=== PATIENT | male | born 1945 | race African-American/Black ===

== ENCOUNTER 2016-10-13 06:19 | Day surgery (SDC) | payer OTHER ==
[~2016-10-13] VITALS: Ht 185.4 cm; Wt 114.7 kg
[~2016-10-13 06:19] MED LIST: GLIMEPIRIDE2 MG PO; LISINOPRIL/HCTZ1 TA1 PO; LISINOPRIL20 MG PO; METFORMIN500 MG PO; NORVASC5 MG PO
[2016-10-13] MEDS ORDERED: PRINIVIL40 MG PO (06:41)
[2016-10-13] MEDS ORDERED: NORVASC 10MG10 MG PO (06:42)
[2016-10-13] MEDS ORDERED: GLUCOPHAGE1000 MG PO (06:43)
[2016-10-13 07:20] VITALS: BP 151/63; PULSE 58; TEMP 98.1
[2016-10-13 10:05] VITALS: BP 123/53; PULSE 46; TEMP 98
[2016-10-13] MEDS ORDERED: NORCO 325 MG-7.1 TAB PO (10:11)
[2016-10-13 10:17] VITALS: BP 125/62; PULSE 53
[2016-10-13 10:30] VITALS: BP 122/47; PULSE 47
[2016-10-13 10:45] VITALS: BP 113/52; PULSE 47
[2016-10-13 11:15] VITALS: BP 128/55; PULSE 49
== END 2016-10-13 12:35 | disposition home or self-care (01) ==
LOC: SDCO 06:19
DX: K40.91 Unilateral inguinal hernia, without obstruction or gangrene, recurrent (principal); E11.9 Type 2 diabetes mellitus without complications
CPT/HCPCS: C1781; J0690; J2704; J3010; J7030

== ENCOUNTER → 2019-03-03 | Outpatient (CLI) | payer MEDICARE ==
[~2019-03-03] MED LIST changes: +GLUCOPHAGE1000 MG PO; +NORCO 325 MG-7.1 TAB PO; +NORVASC 10MG10 MG PO; +PRINIVIL40 MG PO
== END ==
LOC: COL.VAS 10:09
DX: I87.2 Venous insufficiency (chronic) (peripheral) (principal)

== ENCOUNTER 2019-12-21 00:11 | Inpatient (IN) | payer MEDICARE ==
[~2019-12-21] VITALS: Ht 182.9 cm; Wt 97.9 kg
[2019-12-21] VITALS (444 sets, daily range): BP systolic 125–156; BP diastolic 6–75; PULSE 59–68; TEMP 97.9–99; O2SAT 88–100
[2019-12-21 00:39] LABS: BASO % 0.3 % (0.0-2.0); EOS # 0.2 (0.0-0.7); GRAN # 4.4 (1.4-6.5); GRAN % 59.9 % (42.2-75.2); LYMPH # 1.7 (1.2-3.4); LYMPH % 22.6 % (20.0-51.0); MEAN CELL VOLUME 70 fl (80.0-100.0); MEAN CORPUSCULAR HGB CONC 30 g/dl (33.0-37.0); MEAN PLATELET VOLUME 8.3 fl (7.4-10.4); MONO % 13.8 % (1.7-9.3); PLATELET COUNT 244 K/mm3 (130-400); REDCELL DISTRIBUTION WIDTH-CV 18.1 % (11.5-14.5)
[2019-12-21 00:46] LABS: HEMATOCRIT 21.8 % (42.0-52.0); HEMOGLOBIN 6.5 g/dl (13.5-18.0); MEAN CORPUSCULAR HEMOGLOBIN 21 pg (27.0-31.0)
[2019-12-21 00:48] LABS: ALBUMIN 3.6 gm/dL (3.5-5.0); BILIRUBIN,TOTAL 0.3 mg/dL (0.0-1.0); CALCIUM 8.8 mg/dL (8.4-10.2); CREATININE, serum 1.43 (0.66-1.25); TOTAL PROTEIN 8.8 gm/dL (6.4-8.2)
[2019-12-21] MEDS ORDERED: AMARYL1 MG PO (01:55)
[2019-12-21] MEDS ORDERED: HYGROTON 2525 MG/TAB (01:56)
[2019-12-21 02:39] LABS: PH 5 (5-8); SQUAMOUS EPITHELIAL None Seen /hpf; URINE APPEARANCE Clear; URINE BACTERIA None Seen /hpf; URINE BILIRUBIN Negative (NEGATIVE); URINE BLOOD Negative (NEGATIVE); URINE COLOR Yellow; URINE GLUCOSE Negative (NEGATIVE); URINE KETONE Negative (NEGATIVE); URINE LEUKOCYTE ESTERASE Trace (NEGATIVE); URINE NITRATE Negative (NEGATIVE); URINE PROTEIN(semi-quant) Negative (NEGATIVE); URINE RBC 0-2 /hpf; URINE UROBILINOGEN Negative (NEGATIVE)
[2019-12-21 02:43] LABS: COLLECTION METHOD CLEAN CATCH
[2019-12-21] MEDS ORDERED: LIPITOR 40MG TA40 MG PO (05:01)
[2019-12-21 05:19] LABS: BASO % 0.5 % (0.0-2.0); EOS # 0.3 (0.0-0.7); EOS % 4.3 % (0-4.0); GRAN # 3.9 (1.4-6.5); GRAN % 62.4 % (42.2-75.2); LYMPH # 1.3 (1.2-3.4); MEAN CELL VOLUME 72 fl (80.0-100.0); MEAN CORPUSCULAR HGB CONC 29 g/dl (33.0-37.0); MEAN PLATELET VOLUME 8.3 fl (7.4-10.4); MONO # 0.7 (0.1-0.6); MONO % 11.5 % (1.7-9.3); PLATELET COUNT 233 K/mm3 (130-400); RED BLOOD COUNT 2.84 M/mm3 (4.20-5.60); REDCELL DISTRIBUTION WIDTH-CV 18.1 % (11.5-14.5)
[2019-12-21] MEDS ORDERED: MULTI VITAMINS1 TAB PO (05:20)
[2019-12-21 05:25] LABS: HEMATOCRIT 20.3 % (42.0-52.0); HEMOGLOBIN 5.9 g/dl (13.5-18.0); MEAN CORPUSCULAR HEMOGLOBIN 21 pg (27.0-31.0)
[2019-12-21 05:30] LABS: CALCIUM 8.4 mg/dL (8.4-10.2); CREATININE, serum 1.37 (0.66-1.25); POTASSIUM 4.3 mmol/L (3.4-5.0)
[2019-12-21 05:41] LABS: TROPONIN-I 0.015 ng/mL (0.000-0.035)
[2019-12-21 05:44] LABS: IRON,SERUM 23 ug/dL (35-150)
[2019-12-21 05:53] LABS: TOTAL IRON BINDING CAPACITY 235 ug/dL (261-462)
--- NOTE | 2019-12-21 06:51 | NUR ---
0402 - RECEIVED REPORT FROM IZZY CARDONA. 0427 - PT ARRIVED IN UNIT, ABLE TO TRASNFER SELF FROM STRETCHER TO BED WITH STANDBY ASSIST. PT DENIES ANY PAIN OR SOB, VS WNL. PT'S BS AT 58 PRIOR TO ARRIVAL, GIVEN D50 IN ED. PT'S BS AT 97 UPON RECHECK. 0515 - BT BEGUN, AND NO ADVERSE REACTION NOTED POST 15 MINTUTE OF TRANSFUSION. HGB AT 5.9 AT LATEST, WILL FOLLOW H&H 1 HOUR POST TRANSFUSION.
--- NOTE | 2019-12-21 06:55 | NUR ---
0600 - PT'S BS AT 57, OJ AND CRACKER GIVEN. 0630 - PT'S BS UPON RECEHCK IS 61, D10W IN NS JUST STARTED AND WILL RECHECK BS AT 0700.
--- NOTE | 2019-12-21 07:42 | NUR ---
REPORT GIVEN TO IZZY MONSALVE.
[2019-12-21 11:30] LABS: HEMATOCRIT 22.6 % (42.0-52.0); HEMOGLOBIN 6.8 g/dl (13.5-18.0)
--- NOTE | 2019-12-21 16:23 | NUR ---
Bookkeeping Teacher met with patient to discuss discharge planning. Patient lives in [place] with his , Ivy (ph#[phone]). Patient sees Dr. Callejas for primary care and obtains medications from [facility] with no difficulties. Patient states he has Medicare and Aetna supplemental. Patient states his has his wallet and will bring in the Aetna card. Patient does not use any DME and reports independence with ADLS. Patient does not have Advance Directives but is interested in setting up DPOA-HC. SW assisted patient in filling out the form and chose to designate his and daughter, Sachi. SW and RN provided witness signature. SW provided original and copies to patient then placed a copy on patient's chart. SW will continue to follow.
[2019-12-21 16:53] LABS: HEMATOCRIT 25.3 % (42.0-52.0); HEMOGLOBIN 7.7 g/dl (13.5-18.0)
[2019-12-22 00:15] VITALS: BP 136/57; PULSE 60; TEMP 98.5
[2019-12-22 03:23] LABS: C-PEPTIDE,SERUM 18.73 ng/mL (0.80-3.90)
[2019-12-22 04:59] VITALS: BP 142/59; PULSE 60; TEMP 98
[2019-12-22 07:39] LABS: BASO # 0.1 (0.0-0.2); BASO % 0.9 % (0.0-2.0); EOS # 0.5 (0.0-0.7); EOS % 9.2 % (0-4.0); GRAN # 3.1 (1.4-6.5); GRAN % 53.7 % (42.2-75.2); LYMPH # 1.5 (1.2-3.4); LYMPH % 25.6 % (20.0-51.0); MEAN CELL VOLUME 73 fl (80.0-100.0); MEAN CORPUSCULAR HGB CONC 30 g/dl (33.0-37.0); MEAN PLATELET VOLUME 9.2 fl (7.4-10.4); MONO # 0.6 (0.1-0.6); MONO % 10.4 % (1.7-9.3); PLATELET COUNT 282 K/mm3 (130-400); RED BLOOD COUNT 3.35 M/mm3 (4.20-5.60); REDCELL DISTRIBUTION WIDTH-CV 19.4 % (11.5-14.5)
[2019-12-22 07:49] LABS: HEMATOCRIT 24.6 % (42.0-52.0); HEMOGLOBIN 7.4 g/dl (13.5-18.0); MEAN CORPUSCULAR HEMOGLOBIN 22 pg (27.0-31.0)
[2019-12-22 07:51] VITALS: BP 170/68; PULSE 73; TEMP 97.4
[2019-12-22 07:52] LABS: CALCIUM 8.7 mg/dL (8.4-10.2); CREATININE, serum 1.32 (0.66-1.25); POTASSIUM 4.9 mmol/L (3.4-5.0)
--- NOTE | 2019-12-22 08:12 | NUR ---
Assessment completed, alert/oriented, vital signs stable, denies any pain or discomfort, hemaglobin 7.4 this morning, heart RRR/ SR on tele, lungs CTA, no resp.difficulty, blood sugars are being maintained >100 and patient reports feeling fine/ denies any s/s of hypoglycemia or anemia, he is sitting up eating breakfast at this time, he has voiced desire to be discharged home today
[2019-12-22 12:01] VITALS: BP 149/64; PULSE 62; TEMP 98.4
[2019-12-22] MEDS ORDERED: FERROUS SU325 MG/TAB PO (15:39)
--- NOTE | 2019-12-22 17:15 | NUR ---
Discharge instructions reviewed with the patient and his , instructed to follow up with PCP and Pulm. in 1 week time, have labs recheck as directed, instructed to stop Amaryl and to start BID iron supplement, check fsbs at least BID, IV and tele removed, ambulatory and leaving with his , I will escort him out
== END 2019-12-22 17:25 | disposition home or self-care (01) | DRG 812 ==
LOC: COL.ER 00:11 → MEDICAL 02:58 → ICU 02:58 → MEDICAL 18:03
PROVIDERS: Emergency Medicine; Nurse Practitioner Family; ADMIT Hospitalist
DX: D50.9 Iron deficiency anemia, unspecified (principal); N17.9 Acute kidney failure, unspecified; E11.649 Type 2 diabetes mellitus with hypoglycemia without coma; I12.9 Hypertensive chronic kidney disease with stage 1 through stage 4 chronic kidney disease, or unspecified chronic kidney disease; N18.9 Chronic kidney disease, unspecified; Z79.84 Long term (current) use of oral hypoglycemic drugs
CPT/HCPCS: 99223-AI; 99239; C9113; J1644; J7042; J7131; P9016

== ENCOUNTER 2020-02-16 16:36 | Outpatient (RCR) | payer MEDICARE ==
[~2020-02-16] VITALS: Ht 182.9 cm; Wt 96.0 kg
[2020-02-16] VITALS (9 sets, daily range): BP systolic 130–153; BP diastolic 47–68; PULSE 59–63; TEMP 98.3–99
[~2020-02-16 16:36] MED LIST changes: +AMARYL1 MG PO; +FERROUS SU325 MG/TAB PO; -GLUCOPHAGE1000 MG PO; +GLUCOPHAGE500 MG/TAB PO; +HYGROTON 2525 MG/TAB; +LIPITOR 40MG TA40 MG PO; +MULTIPLE VITAMI1 TA5 PO
[2020-02-16] MEDS ORDERED: ZYLOPRIM 100MG100 MG PO (17:48)
[2020-02-16] MEDS ORDERED: ASPIRIN E.C. 8181 MG PO (17:49)
[2020-02-16] MEDS ORDERED: VITAMIN C500 MG PO (17:49)
== END 2020-02-19 08:34 | disposition home or self-care (01) ==
LOC: EUO 16:36
DX: D64.9 Anemia, unspecified (principal)
CPT/HCPCS: J7050; P9016

== ENCOUNTER 2020-03-26 10:23 | Outpatient (RCR) | payer MEDICARE ==
[2020-03-26] VITALS (7 sets, daily range): BP systolic 119–133; BP diastolic 49–64; PULSE 57–60; TEMP 98–98.3
[~2020-03-26] VITALS: Ht 182.9 cm; Wt 67.4 kg
[~2020-03-26 10:23] MED LIST changes: +ASPIRIN E.C. 8181 MG PO; +VITAMIN C500 MG PO; +ZYLOPRIM 100MG100 MG PO
[2020-03-26] MEDS ORDERED: FERROUS SU325 MG/TAB PO (15:42)
== END 2020-03-26 14:00 | disposition home or self-care (01) ==
LOC: EUO 10:23
DX: D50.9 Iron deficiency anemia, unspecified (principal)
CPT/HCPCS: J7050; P9016

== ENCOUNTER 2020-04-05 10:02 | Outpatient (CLI) | payer MEDICARE ==
[~2020-04-05] VITALS: Ht 182.9 cm; Wt 93.0 kg
[2020-04-05] VITALS (18 sets, daily range): BP systolic 128–157; BP diastolic 61–89; PULSE 59–79
--- NOTE | 2020-04-05 14:53 | NUR ---
Discharge instructions given to pt.pt verbalizes understanding.INt removed,catheter tip intact.Pt escorted out via wheelchair by this nurse.
--- NOTE | 2020-04-08 11:38 | NUR ---
pt to ct per ambulation, monitors applied, O2 on at 2l/nc.
== END 2020-04-05 16:25 | disposition home or self-care (01) ==
LOC: COL.RAD 10:02
DX: N28.89 Other specified disorders of kidney and ureter (principal); R91.8 Other nonspecific abnormal finding of lung field

== ENCOUNTER 2020-06-28 09:00 | Outpatient (RCR) | payer MEDICARE | END 2020-07-15 | disposition home or self-care (01) | LOC: WSPT | DX: M79.89 Other specified soft tissue disorders (principal); R60.0 Localized edema ==

== ENCOUNTER 2020-07-04 09:00 | Outpatient (RCR) | payer MEDICARE | END 2020-07-15 | disposition home or self-care (01) | LOC: WSPT | DX: C64.1 Malignant neoplasm of right kidney, except renal pelvis (principal); D50.9 Iron deficiency anemia, unspecified ==

== ENCOUNTER 2020-07-24 14:00 | Outpatient (RCR) | payer MEDICARE | END 2020-07-29 15:37 | disposition home or self-care (01) | LOC: WSPT 14:00 | DX: M79.89 Other specified soft tissue disorders (principal) ==

== ENCOUNTER 2020-10-03 12:13 | Inpatient (IN) | payer MEDICARE ==
[~2020-10-03] VITALS: Ht 185.4 cm; Wt 82.1 kg
[2020-10-03 13:11] LABS: EOS # 0.5 (0.0-0.7); EOS % 17.7 % (0-4.0); GRAN # 0.6 (1.4-6.5); GRAN % 21.3 % (42.2-75.2); HEMOGLOBIN 10.8 g/dl (13.5-18.0); LYMPH # 1.5 (1.2-3.4); LYMPH % 50.3 % (20.0-51.0); MEAN CELL VOLUME 88 fl (80.0-100.0); MEAN CORPUSCULAR HEMOGLOBIN 27 pg (27.0-31.0); MEAN CORPUSCULAR HGB CONC 30 g/dl (33.0-37.0); MEAN PLATELET VOLUME 9.3 fl (7.4-10.4); MONO # 0.3 (0.1-0.6); MONO % 9.4 % (1.7-9.3); PLATELET COUNT 134 K/mm3 (130-400); RED BLOOD COUNT 4.02 M/mm3 (4.20-5.60); REDCELL DISTRIBUTION WIDTH-CV 16.1 % (11.5-14.5)
[2020-10-03 13:12] LABS: INR 1.2 (0.8-3.0); PROTHROMBIN TIME 13.3 SECONDS (9.7-12.8)
[2020-10-03 13:13] LABS: BILIRUBIN,TOTAL 0.5 mg/dL (0.0-1.0); C-REACTIVE PROTEIN 5.8 mg/dL (0.0-0.9); CALCIUM 8.2 mg/dL (8.4-10.2); CREATININE, serum 1.1 (0.66-1.25); MAGNESIUM 1.9 mg/dL (1.6-2.3); POTASSIUM 4.1 mmol/L (3.4-5.0); TOTAL PROTEIN 8.8 gm/dL (6.4-8.2)
[2020-10-03 13:15] LABS: HEMATOCRIT 35.5 % (42.0-52.0)
[2020-10-03 13:26] LABS: TROPONIN-I 0.058 ng/mL (0.000-0.035)
[2020-10-03 15:47] LABS: COLLECTION METHOD CLEAN CATCH
[2020-10-03 15:55] LABS: AMORPHOUS CRYSTAL Present /uL; PH 7 (5-8); SQUAMOUS EPITHELIAL 0-2 /hpf; URINE APPEARANCE Clear; URINE BACTERIA None Seen /hpf; URINE BILIRUBIN Negative (NEGATIVE); URINE BLOOD 2+ (NEGATIVE); URINE COLOR Straw; URINE GLUCOSE Negative (NEGATIVE); URINE KETONE Negative (NEGATIVE); URINE LEUKOCYTE ESTERASE Negative (NEGATIVE); URINE NITRATE Negative (NEGATIVE); URINE PROTEIN(semi-quant) Negative (NEGATIVE); URINE RBC 20-50 /hpf; URINE UROBILINOGEN Negative (NEGATIVE)
[2020-10-03] MEDS ORDERED: PROAIR HFA0.09 MG/AC IH (16:58)
[2020-10-03] MEDS ORDERED: TEMOVATE OINT30 GM TOP (16:59)
[2020-10-03] MEDS ORDERED: YERVOY (16:59)
[2020-10-03] MEDS ORDERED: CABOMETYX40 MG PO (17:14)
[2020-10-03] MEDS ORDERED: LASIX 40MG TABL40 MG PO (17:20)
[2020-10-03 21:54] VITALS: BP 166/76; PULSE 57; TEMP 97.4
[2020-10-04] VITALS (8 sets, daily range): BP systolic 119–183; BP diastolic 59–86; PULSE 56–86; TEMP 97.3–98.3
[2020-10-04 06:25] LABS: HEMOGLOBIN 11.4 g/dl (13.5-18.0); MEAN CELL VOLUME 86 fl (80.0-100.0); MEAN CORPUSCULAR HEMOGLOBIN 27 pg (27.0-31.0); MEAN CORPUSCULAR HGB CONC 31 g/dl (33.0-37.0); MEAN PLATELET VOLUME 10.2 fl (7.4-10.4); PLATELET COUNT 102 K/mm3 (130-400); RED BLOOD COUNT 4.27 M/mm3 (4.20-5.60); REDCELL DISTRIBUTION WIDTH-CV 16.2 % (11.5-14.5)
[2020-10-04 06:38] LABS: HEMATOCRIT 36.7 % (42.0-52.0)
[2020-10-04 06:46] LABS: ALBUMIN 2.8 gm/dL (3.5-5.0); BILIRUBIN,TOTAL 0.7 mg/dL (0.0-1.0); CALCIUM 8.1 mg/dL (8.4-10.2); CREATININE, serum 1.05 (0.66-1.25); POTASSIUM 4.1 mmol/L (3.4-5.0); TOTAL PROTEIN 8.5 gm/dL (6.4-8.2)
[2020-10-04 06:51] LABS: TROPONIN-I 0.054 ng/mL (0.000-0.035)
--- NOTE | 2020-10-04 07:20 | NUR ---
Patient lying in bed watching TV at this time. Patient denies any pain or discomfort. Patient denies any needs at this time. Will continue to monitor. Call light within reach. Fall percautions in place.
--- NOTE | 2020-10-04 07:25 | NUR ---
Bedside report recieved from IZZY Arroyo. Patient laying in bed resting at this time. NS running as ordered. Patient denies any pain, discomfort, or needs at this time. Will continue to monitor. Fall percautions in place. Call light within reach.
[2020-10-04 08:03] LABS: EOSINOPHIL 21 % (0-4); LYMPHOCYTE 46 % (20.0-51.0); NEUTROPHILS 32 % (42.0-75.2); OVALOCYTES 2+; PLATELET ESTIMATE DECREASED (NORMAL)
--- NOTE | 2020-10-04 13:54 | NUR ---
Primary nurse was assisted with [id number] patient care by [employer] [employer] student Maciel Camacho and [employer] instructor Elvira Quijano MSN, RN.
--- NOTE | 2020-10-04 14:50 | NUR ---
Patient Service Representative met with patient and patient's , Jessica (ph#[phone]) to discuss discharge planning. Patient lives in [place] with his and sees Dr. Aurora Callejas for primary care. Patient obtains medications from [facility]. Patient has recently borrowed a walker from a bapt[employer] friend as he has had more difficulty getting around. Per patient's , patient has needed assistance from her with all ADLS. SW reviewed PT recommendation for SNF. Patient's Jessica is in agreement, however at first patient shook his head "no". After further discussion, patient seems more agreeable. SW reviewed locals SNF's and preferences are 1) [facility] and 2) [facility]. Patient has Advance Directives in EMR which designate Jessica and patient's daughter, Sachi. SW contacted both [facility] and [facility] then faxed referrals. MIRTHA followed left a message for Dr. Brice's RN, Rosa Maria as patient is currently on oral chemotherapy. SW received a phone message back from Rosa Maria that advised Dr. Brice is supportive of patient going to rehab. Plan will be SNF. Waiting on screens from [facility] and [facility].
--- NOTE | 2020-10-04 15:18 | NUR ---
Patient taken down to MRI via wheelchair.
--- NOTE | 2020-10-04 16:25 | NUR ---
[facility] advised her team reviewed referral and they will continue to follow referral. [facility] advised that they will not have beds over the weekend.
--- NOTE | 2020-10-04 19:29 | NUR ---
Bedside report given to IZZY Larios. Patient resting in bed at this time. Patient denies any pain or discomfort. Denies any further request. Fall percautions in place. Call light within reach.
[2020-10-05 03:30] VITALS: BP 165/76; PULSE 65; TEMP 97.4
[2020-10-05 05:48] LABS: BASO % 0.7 % (0.0-2.0); EOS # 0.8 (0.0-0.7); EOS % 24.4 % (0-4.0); GRAN # 0.6 (1.4-6.5); GRAN % 20.2 % (42.2-75.2); HEMOGLOBIN 10.9 g/dl (13.5-18.0); LYMPH # 1.5 (1.2-3.4); LYMPH % 48.5 % (20.0-51.0); MEAN CELL VOLUME 87 fl (80.0-100.0); MEAN CORPUSCULAR HEMOGLOBIN 26 pg (27.0-31.0); MEAN CORPUSCULAR HGB CONC 30 g/dl (33.0-37.0); MEAN PLATELET VOLUME 9.7 fl (7.4-10.4); MONO # 0.2 (0.1-0.6); MONO % 5.9 % (1.7-9.3); PLATELET COUNT 128 K/mm3 (130-400); RED BLOOD COUNT 4.13 M/mm3 (4.20-5.60); REDCELL DISTRIBUTION WIDTH-CV 15.9 % (11.5-14.5)
[2020-10-05 05:49] LABS: HEMATOCRIT 35.9 % (42.0-52.0)
[2020-10-05 06:00] LABS: CALCIUM 7.9 mg/dL (8.4-10.2); CREATININE, serum 0.96 (0.66-1.25); POTASSIUM 3.8 mmol/L (3.4-5.0)
--- NOTE | 2020-10-05 07:18 | NUR ---
Patient resting in bed at this time. Patient denies any pain, discomfort, or needs. Will continue to moniotor. Call light within reach. Fall percautions in place.
[2020-10-05 08:19] VITALS: BP 156/69; PULSE 60; TEMP 97.3
[2020-10-05] MEDS ORDERED: TOPROL XL 25MG25 MG PO (09:18)
--- NOTE | 2020-10-05 10:38 | NUR ---
Patient resting in bed at this time. PT worked with patient and were able to transfer him to his chair. Dr. Currie has put in orders for discharge. Waiting for placement. Covid test collected. Bladder scan performed, 302 ml residual urine detected. JOSEPH Palacio notified. Patient denies any pain, discomfort, or needs at this time. Gave an update to patient's son Leonard. Call light within reach. Fall percautions in place.
[2020-10-05 11:08] VITALS: BP 159/79; PULSE 58; TEMP 97.4
[2020-10-05 16:18] VITALS: BP 160/75; PULSE 62; TEMP 97.6
--- NOTE | 2020-10-05 17:00 | NUR ---
Patient is resting in bed at this time. Scheduled meds given. Patient's legs were moisturized and then wrapped in gauze bandages to help with the skin dryness the patient has been experiencing. Patient toileted. Patient does not C/O any pain or discomfort at this time. Patient denies any needs. Will continue to monitor. Call light within reach. Fall percautions in place.
[2020-10-05 19:52] VITALS: BP 164/75; PULSE 64; TEMP 97.8
[2020-10-05 23:20] VITALS: BP 159/96; PULSE 69; TEMP 97.4
[2020-10-06 04:14] VITALS: BP 165/84; PULSE 62; TEMP 97.6
--- NOTE | 2020-10-06 05:05 | NUR ---
PATIENT RESTED QUIETLY IN BED THROUGHOUT THE NIGHT WAKING UP A FEW TIMES TO GO TO THE BATHROOM. PATIENT ALERT AND ORIENTED WITH INTERMITTENT CONFUSION BUT EASILY REORIENTED. NO NEW ISSUES NOTED OR REPORTED BY PATIENT. FALL PRECAUTIONS IN PLACE.
[2020-10-06 06:22] LABS: HEMATOCRIT 37.6 % (42.0-52.0); HEMOGLOBIN 11.7 g/dl (13.5-18.0); MEAN CELL VOLUME 87 fl (80.0-100.0); MEAN CORPUSCULAR HEMOGLOBIN 27 pg (27.0-31.0); MEAN CORPUSCULAR HGB CONC 31 g/dl (33.0-37.0); MEAN PLATELET VOLUME 9.5 fl (7.4-10.4); PLATELET COUNT 125 K/mm3 (130-400); REDCELL DISTRIBUTION WIDTH-CV 16.3 % (11.5-14.5)
[2020-10-06 06:25] LABS: CALCIUM 8.1 mg/dL (8.4-10.2); CREATININE, serum 0.98 (0.66-1.25)
--- NOTE | 2020-10-06 06:50 | NUR ---
appears to be sleeping, bedside shift report received from IZZY Larios
[2020-10-06 07:56] VITALS: BP 169/84; PULSE 62; TEMP 97.5
[2020-10-06] MEDS ORDERED: FLOMAX 0.40.4 MG/CAP PO (08:18)
[2020-10-06] MEDS ORDERED: TOPROL XL 50MG50 MG PO (08:47)
--- NOTE | 2020-10-06 10:40 | NUR ---
is up in recliner, gauze removed from lower extremities, legs are very dry and scaley and has a 1cm open area to top of right ankle area dn aunder ankle on the right, a small 0.5 cm open area to top of right ankle area, thick layer of lotion applied and left and bilateral lower extremities wrapped with anil wraps, denies pain or needs
--- NOTE | 2020-10-06 11:15 | NUR ---
full assessment was completed, have reviewed assessment completed by student and in agreement with that assessment, pedal pulses are difficult to assess with the tough and flaking skin to area, toes and feet are warm to touch,
[2020-10-06 11:20] VITALS: BP 169/84; PULSE 62; TEMP 97.5
[2020-10-06 12:02] VITALS: BP 157/73; PULSE 55
--- NOTE | 2020-10-06 13:02 | NUR ---
MIRTHA update. Patient to Dc to [facility] at 3 pm. MIRTHA faxed DC orders to [facility] and worked with him on transfer time. Notified nurse about care.
--- NOTE | 2020-10-06 13:19 | NUR ---
had very large loose incontinent stool, he states it just came on very quickly and was unable to call for help, care provided
--- NOTE | 2020-10-06 14:05 | NUR ---
PT WAS COMPLIANT TO MEDICATIONS. PT ATE TWO MEALS AND TOLERATED BOTH WELL. PT WAS TRANSFERRED FROM BED TO CHAIR AND ALSO USED THE COMODE ONCE. PT WAS VERY PLEASANT ALL DAY, BUT DID HAVE SOME MINOR CONFUSION AT TIMES, BUT WAS ABLE TO GATHER HIS THOUGHTS AFTER A FEW MINUTES. PT HAD 2 BOWEL MOVEMENTS AND ONE WAS AN UNCONTROLLED BOWEL MOVEMENT IN THE CHAIR.
--- NOTE | 2020-10-06 14:31 | NUR ---
[facility] charting reviewed by this instructor, agree with assessment findings and charting.
--- NOTE | 2020-10-06 15:29 | NUR ---
discharged per WC, report called to Pat at [facility]
== END 2020-10-06 15:30 | DRG 291 ==
LOC: COL.ER 12:13 → MEDICAL 14:03
PROVIDERS: Emergency Medicine; Physician Assistant; ADMIT Family Medicine
DX: I13.0 Hypertensive heart and chronic kidney disease with heart failure and stage 1 through stage 4 chronic kidney disease, or unspecified chronic kidney disease (principal); I50.21 Acute systolic (congestive) heart failure; C64.9 Malignant neoplasm of unspecified kidney, except renal pelvis; C78.00 Secondary malignant neoplasm of unspecified lung; N18.9 Chronic kidney disease, unspecified; E78.5 Hyperlipidemia, unspecified; E11.22 Type 2 diabetes mellitus with diabetic chronic kidney disease; R77.8 Other specified abnormalities of plasma proteins; R32 Unspecified urinary incontinence; D70.1 Agranulocytosis secondary to cancer chemotherapy; E11.649 Type 2 diabetes mellitus with hypoglycemia without coma; M48.061 Spinal stenosis, lumbar region without neurogenic claudication; I25.10 Atherosclerotic heart disease of native coronary artery without angina pectoris; T45.1X5A Adverse effect of antineoplastic and immunosuppressive drugs, initial encounter; D69.6 Thrombocytopenia, unspecified; D63.1 Anemia in chronic kidney disease; D53.9 Nutritional anemia, unspecified; E03.9 Hypothyroidism, unspecified; I89.0 Lymphedema, not elsewhere classified; E11.622 Type 2 diabetes mellitus with other skin ulcer; L97.529 Non-pressure chronic ulcer of other part of left foot with unspecified severity; L97.519 Non-pressure chronic ulcer of other part of right foot with unspecified severity; Z79.82 Long term (current) use of aspirin; Z79.84 Long term (current) use of oral hypoglycemic drugs
CPT/HCPCS: 99223-AI; 99232-AI; 99233-AI; 99239; J1644; J1940

== ENCOUNTER → 2020-12-02 15:45 | Outpatient (RCR) | payer MEDICARE ==
[~2020-12-02 15:45] MED LIST changes: +CABOMETYX40 MG PO; +FLOMAX 0.40.4 MG/CAP PO; +LASIX 40MG TABL40 MG PO; +PROAIR HFA0.09 MG/AC IH; +TEMOVATE OINT30 GM TOP; +TOPROL XL 25MG25 MG PO; +TOPROL XL 50MG50 MG PO; +YERVOY
== END | disposition home or self-care (01) ==
LOC: WSPT 11-25 10:00
DX: I89.0 Lymphedema, not elsewhere classified (principal)

== ENCOUNTER 2021-07-20 11:23 | Inpatient (IN) | payer MEDICARE ==
[~2021-07-20] VITALS: Ht 175.3 cm; Wt 77.7 kg
[~2021-07-20 11:23] MED LIST changes: +LASIX 20MG TABL20 MG PO; -LASIX 40MG TABL40 MG PO; -VITAMIN C500 MG PO; +VTAMINC250TA PO
[2021-07-20 13:15] LABS: BASO # 0.1 K/mm3 (0.0-0.2); BASO % 0.7 % (0.0-2.0); EOS # 0.1 K/mm3 (0.0-0.7); EOS % 0.8 % (0.0-4.0); GRAN # 5.3 K/mm3 (1.4-6.5); GRAN % 71.5 % (42.2-75.2); HEMATOCRIT 29.8 % (42.0-52.0); LYMPH # 1.3 K/mm3 (1.2-3.4); LYMPH % 18.1 % (20.0-51.0); MEAN CELL VOLUME 93 fl (80.0-100.0); MEAN CORPUSCULAR HEMOGLOBIN 28 pg (27-31); MEAN CORPUSCULAR HGB CONC 30 g/dl (33.0-37.0); MEAN PLATELET VOLUME 9.1 fl (7.4-10.4); MONO # 0.6 K/mm3 (0.1-0.6); MONO % 8.5 % (1.7-9.3); PLATELET COUNT 442 K/mm3 (130-400); RED BLOOD COUNT 3.21 M/mm3 (4.20-5.60); REDCELL DISTRIBUTION WIDTH-CV 17.1 % (11.5-14.5)
[2021-07-20 13:34] LABS: ALBUMIN 1.9 gm/dL (3.4-4.8); BILIRUBIN,TOTAL 0.8 mg/dL (0.2-1.2); C-REACTIVE PROTEIN 10.77 mg/dL (0.00-0.50); CALCIUM 8.3 mg/dL (8.4-10.2); CREATININE, serum 1.26 mg/dL (0.72-1.25); POTASSIUM 3.6 mmol/L (3.5-4.5); TOTAL PROTEIN 7.9 gm/dL (6.2-8.1)
[2021-07-20 13:42] LABS: TROPONIN-I 0.15 ng/mL (0.00-0.033)
[2021-07-20 14:16] LABS: COLLECTION METHOD CLEAN CATCH
[2021-07-20 14:24] LABS: PH 5 (5-8); SQUAMOUS EPITHELIAL 0-2 /hpf (0-10); URINE APPEARANCE Hazy (CLEAR/HAZY); URINE BACTERIA None Seen /hpf (NONE SEEN); URINE BILIRUBIN Negative (NEGATIVE); URINE BLOOD Negative (NEGATIVE); URINE COLOR Yellow (YELLOW); URINE GLUCOSE Negative (NEGATIVE); URINE KETONE Trace (NEGATIVE); URINE LEUKOCYTE ESTERASE Negative (NEGATIVE); URINE NITRATE Negative (NEGATIVE); URINE PROTEIN(semi-quant) 1+ (NEGATIVE); URINE UROBILINOGEN Negative (NEGATIVE)
--- NOTE | 2021-07-20 17:00 | NUR ---
PT ARRIVED FROM ED BY STRETCHER. THE PATIENT WAS NOT VERY WITH IT. HE RESPONDED TO VOICE AND TOUCH. HE IS VERY LETHARGIC. THE PATIENT WAS TRANSFERRED OVER TO THE BED IN ROOM 313. HE HAS NOT MOVED MUCH. ASSESSMENT WAS COMPLETED. THE PATIENT HAS LIMITED AIR MOVEMENT IN HIS LOWER RIGHT LOBE. THE PATIENT COULD NOT ANSWER ANY QUESTIONS FOR ADMISSION, WILL ATTEMPT TO CALL FAMILY IN THE MORNING.
[2021-07-20 17:22] VITALS: BP 152/86; PULSE 57; TEMP 98.2
--- NOTE | 2021-07-20 19:15 | NUR ---
REPORT GIVEN TO IZZY CHARLES
[2021-07-20] MEDS ORDERED: ATARAX 25MG25 MG/TAB PO (19:18)
[2021-07-20] MEDS ORDERED: TOPROL XL 25MG25 MG PO (19:19)
[2021-07-20] MEDS ORDERED: PROMETHAZINE-CODEINE PO (19:24)
[2021-07-20] MEDS ORDERED: FOTIVDA PO (19:28)
--- NOTE | 2021-07-20 20:00 | NUR ---
Patient is sleeping in bed, responds to speach and name, but right away closes his eyes and just stay in bed resting. Able to follow simple comands as squeeze hands. He seems to understand what we say but unable to talk back. Pt has HTN, on RA, telemetry in place. NS running at 50ml/hr. Assessment completed, iv meds provided. No other needs at this time, continue monitoring. Talked to Mary, his next of kin, she stated PT was independent one week ago, able to walk, dress himself, shower, eating. She states that the only different thing he has done is taking his chemotherapy pill Fotivda, which started in 05/01/21. Pt did not eat dinner and unable to take PO meds. Continue monitoring.
[2021-07-20 20:07] VITALS: BP 145/85; PULSE 55; TEMP 97.6
[2021-07-20 23:12] VITALS: BP 142/74; PULSE 55; TEMP 97.4
[2021-07-21 03:42] VITALS: BP 140/79; PULSE 51; TEMP 97.4
--- NOTE | 2021-07-21 06:55 | NUR ---
Pt has been sleeping along the night. Scan of his bladder showed 734 ml. Catheter gaming order in place. Tried but unable to start due to coiling of the catheter. Receiving IV medication. Report given to day RN.
[2021-07-21 07:14] LABS: GRAN # 3.9 K/mm3 (1.4-6.5); HEMOGLOBIN 9.2 g/dl (13.5-18.0); LYMPH % 20.2 % (20.0-51.0); MEAN CELL VOLUME 92 fl (80.0-100.0); MEAN CORPUSCULAR HEMOGLOBIN 28 pg (27-31); MEAN CORPUSCULAR HGB CONC 31 g/dl (33.0-37.0); MEAN PLATELET VOLUME 9.6 fl (7.4-10.4); MONO # 0.1 K/mm3 (0.1-0.6); MONO % 2.6 % (1.7-9.3); PLATELET COUNT 398 K/mm3 (130-400); RED BLOOD COUNT 3.26 M/mm3 (4.20-5.60); REDCELL DISTRIBUTION WIDTH-CV 17.2 % (11.5-14.5)
[2021-07-21 07:28] LABS: ALBUMIN 1.8 gm/dL (3.4-4.8); CALCIUM 8.1 mg/dL (8.4-10.2); CREATININE, serum 1.2 mg/dL (0.72-1.25); MAGNESIUM 1.9 mg/dL (1.6-2.6); PHOSPHOROUS 5.3 mg/dL (2.3-4.7); POTASSIUM 3.8 mmol/L (3.5-4.5)
--- NOTE | 2021-07-21 08:05 | NUR ---
PT IS RETAINING URINE; HE NEEDS A SHEA, HOWEVER WHEN ATTEMPTED THIS AM WITH A REGULAR SHEA, THE SHEA WAS UNABLE TO BE PLACED. AWAITING A CAUDE CATHETER FROM PRESS WORKER HELPER.
[2021-07-21 08:35] VITALS: BP 145/77; PULSE 51
[2021-07-21 12:00] VITALS: BP 145/79; PULSE 54; TEMP 98
--- NOTE | 2021-07-21 12:00 | NUR ---
ATTEMPTED TO PLACE A COUDE SHEA CATHETER AFTER A FAILED ATTEMPED THIS MORNING BY THE EDITOR INDEX RN. WAS UNSUCCESSFUL. CONTACTED PROVIDER WHO ASKED WE PLACE A UROLOGY REFERRAL. CALLED DR. VELEZ AND LEFT A MESSAGE WITH HIM TO INFORM HIM OF THE CONSULT.
--- NOTE | 2021-07-21 12:02 | NUR ---
First visit from the appliance service technician. No needs right now.
--- NOTE | 2021-07-21 12:11 | NUR ---
Sexual Assault Counselor met with patient to discuss discharge planning. Patient lives in [place] with his , Jessica (ph#[phone]) and sees Dr. Aurora Callejas for primary care. Patient obtains medications from [facility] in [place] and states he occasionally uses a cane. Patient reported independence with ADLS despite PT/OT recommendation for SNF. Patient has DPOA-HC in EMR which designates patient's , Jessica and daughter Sachi. Patient states he plans to return home upon discharge but may be open to Home Health Services. SW collaborated with Hospitalist who advised patient may have palliative consult placed. Patient sees Dr. Brice, Oncologist but advised he cannot remember how often chemotherapy is.
--- NOTE | 2021-07-21 13:58 | NUR ---
THE PATIENT HAS LEFT THE FLOOR TO GO TO MRI. HAVE BEEN UNSUCCESSFUL IN MULTIPLE ATTEMPTS AT REACHING HIS , LORY TO GET CONSENT FOR THE THORACENTESIS THAT WAS ORDERED AT THIS TIME. CONTACTED THE PATIENT'S BROTHER WHO STATES THAT HE WOULD PREFER THAT LORY CONSENT. NO OTHER CONCERNS AT THIS TIME.
[2021-07-21 15:36] LABS: PLEURAL FLUID RBC 1000 /mm3 (0-0); PLEURAL FLUID WBC 831 /mm3
[2021-07-21 15:38] LABS: PLEURAL FLUID APPEARANCE CLEAR; PLEURAL FLUID COLOR COLORLESS
[2021-07-21 16:00] VITALS: BP 135/83; PULSE 68; TEMP 97.6
--- NOTE | 2021-07-21 16:06 | NUR ---
Met with patient's Jessica while patient was getting MRI and thoracentesis. She and I discussed the patient's current treatment plan with oncology and possible treatment paths moving forward. She doesn't feel comfortable taking the patient home and is interested in using a facility but would like to hear about prognosis and if chemo is working or not before deciding on how aggressive to be with current treatments. Jessica stated she plans to discuss things with pulmonology tomorrow morning but would also like to hear from onocology. I called Dr. Brice's office to notify him of the consult. I plan to talk with the again tomorrow morning after she has had a chance to hear from the care team.
[2021-07-21 18:59] LABS: TROPONIN-I 0.082 ng/mL (0.00-0.033)
--- NOTE | 2021-07-21 19:57 | NUR ---
THE PATIENT HAD AN UNEVENTFUL DAY. HE DID GO DOWN TO RADIOLOGY TO HAVE AN MRI OF THE BRAIN WELL A RIGHT SIDED THORACENTESIS. THE RADIOLOGIST DID GET 700ML OF RICARDA COLORED PLEURAL FLUID OFF. NO COMPLAINTS OF PAIN OR DIFFICULTY BREATHING POST PROCEDURE. PATIENT HAS BECOME INCREASINGLY CONFUSED THROUGHOUT THE LATE AFTERNOON. TODAY THE UROLOGIST JOSEPH CAME AND PLACED A SHEA AND THE INITIAL OUT WAS 375ML OF RICARDA COLORED URINE. NO OTHER CONCERNS AT THIS TIME. WILL CALL TO OBTAIN A VERBAL CONSENT FOR THE PATIENT LUMBAR PUNCTURE THAT WILL BE DONE TOMORROW.
[2021-07-21 20:28] VITALS: BP 127/80; PULSE 63; TEMP 98.9
[2021-07-21 23:33] VITALS: BP 132/81; PULSE 59; TEMP 98.5
[2021-07-22 04:23] VITALS: BP 133/89; PULSE 60; TEMP 98.3
--- NOTE | 2021-07-22 06:48 | NUR ---
NO NEW CLINICAL CHANGES OVERNIGHT. PT VERY ACTIVE OVERNIGHT, PT WAS PLEASANTLY CONFUSED AND DISORIENTED. PT CONTINUES TO HAVE LOOSE STOOLS. SHEA C&D. THIS NURSE SPOKE TO PTS SHE WAS VERY UPSET CONCERNING THE VISITOR POLICY. SHE STATES SHE ATTEMPTED TO CALL SEVERAL TIMES OVERNIGHT TO REQUEST EXCEPTION TO 1 VISITOR POLICY. THIS NURSE RECEIVED REPORT OVERNIGHT THAT PTS WAS VISITING BEFORE VISTING HOURS AND IT WAS CLEARED THROUGH INSIGHTS STRATEGIST TO ALLOW ENTRANCE, THIS NURSE REVIEWED POLICY WITH AND CLEARED WITH AUTOMOBILE CARPETS MOLDER THAT ONLY ONE VISITOR WILL BE ALLOWED IN. NURSE WILL RELAY TO ONCOMING SHIFT.
[2021-07-22 07:05] LABS: MEAN CORPUSCULAR HGB CONC 29 g/dl (33.0-37.0); MEAN PLATELET VOLUME 10.2 fl (7.4-10.4); PLATELET COUNT 423 K/mm3 (130-400); RED BLOOD COUNT 3.08 M/mm3 (4.20-5.60); REDCELL DISTRIBUTION WIDTH-CV 17.4 % (11.5-14.5)
[2021-07-22 07:06] LABS: HEMATOCRIT 29.9 % (42.0-52.0); HEMOGLOBIN 8.8 g/dl (13.5-18.0); MEAN CELL VOLUME 97 fl (80.0-100.0); MEAN CORPUSCULAR HEMOGLOBIN 29 pg (27-31)
[2021-07-22 07:30] LABS: ALBUMIN 1.8 gm/dL (3.4-4.8); CALCIUM 7.9 mg/dL (8.4-10.2); CREATININE, serum 1.23 mg/dL (0.72-1.25); MAGNESIUM 1.9 mg/dL (1.6-2.6); PHOSPHOROUS 3.9 mg/dL (2.3-4.7); POTASSIUM 3.8 mmol/L (3.5-4.5)
[2021-07-22 08:04] LABS: BAND 1 % (0-10); LYMPHOCYTE 6 % (20.0-51.0); NEUTROPHILS 90 % (42.0-75.2)
[2021-07-22 08:06] LABS: OVALOCYTES 1+; PLATELET ESTIMATE INCREASED (NORMAL); SCHISTOCYTES 1+
[2021-07-22 08:09] VITALS: BP 143/93; PULSE 65; TEMP 97.5
--- NOTE | 2021-07-22 09:00 | NUR ---
PT CONFUSED, ALERT TO SELF, PT THINKS HE IS AT HIS HOUSE, AT BEDSIDE, PT EATING BREAKFAST, MENTIONED LUMBAR PUNCTURE FOR TODAY, MENTIONED "OH WE DON'T WANT ANY MORE TESTS". PT ASSESSED, SHEA DRAINING YELLOW URINE, MEDICATIONS GIVEN, NO OTHER NEEDS
--- NOTE | 2021-07-22 10:26 | NUR ---
Met with patient and during rounds with Dr. Mike. met with oncologist this morning and understands that chemo is no longer working and there are no more treatment options available. Jessica is agreeable to hospice services, referral sent to [facility] project coordinator. Shared room and board rates with Jessica and she is very concerned about finances so call made to Grzegorz, financial counselor and discussed case with MIRTHA Kim. Jessica is not comfortable taking the patient home but again is very concerned about finances so will think things over and I will touch base with her when she comes back this afternoon.
--- NOTE | 2021-07-22 11:36 | NUR ---
A palliative care consult was ordered. Chelsea, palliative care RN, met with the patient and his , Mary. The patient's is interested in the hospice house. Referral faxed to the hospice house. The patient's was notified of the room and board rates at the hospice house. Chelsea notified MIRTHA that the patient's has some concerns about the finances at the hospice house. MIRTHA contacted Mary to address the above. Mary plans to be back up at the hospital around 1330 and would like to talk to MIRTHA then. MIRTHA to follow up with his this afternoon.
[2021-07-22 13:03] VITALS: BP 133/87; PULSE 71; TEMP 97.8
--- NOTE | 2021-07-22 13:50 | NUR ---
Chelsea, palliative care RN, notified MIRTHA that she followed up with the hosp[facility] about having them talk to the patient's . Their social service worker leaves within the hour. MIRTHA met with the patient's , Mary, and reviewed discharge plan. Mary reports that she would like for the patient to go to the hospice [place], but is just concerned about finances. Mary is interested in going over to the [facility] for a tour and to talk to them about finances. MIRTHA provided her with the [facility] phone number. Mary plans to contact the [facility] to set up a time with them tomorrow morning to tour and go over finances.
[2021-07-22 16:03] VITALS: BP 135/83; PULSE 69; TEMP 97.6
--- NOTE | 2021-07-22 17:49 | NUR ---
PT PLEASANTLY CONFUSED, TAKES PO PILLS WELL, ATTEMPTS TO GET OUT OF BED FREQUENTLY, REORIENTED TO PLACE AND TIME. COMFORT CARES IMPLEMENTED, PT DENIES PAIN
[2021-07-22 20:26] VITALS: BP 144/86; PULSE 64; TEMP 97.5
[2021-07-23 04:03] VITALS: BP 134/61; PULSE 113; TEMP 99.7
--- NOTE | 2021-07-23 05:29 | NUR ---
COMFORT CARE PROVIDED ALL NIGHT. PT REMAINS DISORIENTED AND CONFUSED BUT PLEASANT AND COOPERATIVE. SHEA C&D. ALL NEEDS PROVIDED THIS SHIFT. CALL LIGHT WITHIN REACH.
[2021-07-23] MEDS ORDERED: FLOMAX 0.40.4 MG/CAP PO (08:55)
[2021-07-23] MEDS ORDERED: ATIVAN 0.50.5 MG/TAB PO (09:03)
[2021-07-23] MEDS ORDERED: DECADRON 4MG TAB4 MG PO (09:03)
[2021-07-23 09:07] VITALS: BP 166/98; PULSE 64; TEMP 97.3
--- NOTE | 2021-07-23 11:37 | NUR ---
The patient's , Mary, met with and toured the hospice house. Chelsea, palliative care RN, notifed MIRTHA that Vera at the hospice contacted her. Vera reports that the visit went well and the patient's would like to move forward with the patient discharging there today. The hospice house is requseting a 1400 transport time. The patient's , Mary, arrived back to the hospital. MIRTHA met with Mary. Mary confirmed that the visit went well and they answered all her finance questions. She is all good with the patient going to the hospice house today. MIRTHA presented and read the IM form and EMS Consent Form outloud to Mary. Mary verbalized understanding and signed the forms. MIRTHA provided her with a copy of the IM form. The patient is to discharge today, 07/23, to the [facility]. Transportation was scheduled at 1400, via [facility]. MIRTHA informed the patient's RN and the patient's . Palliative Care RN to notify the hospice house of time. No additional needs at this time.
--- NOTE | 2021-07-23 14:05 | NUR ---
IV to [facility] dc'd catheter tip intact. EMS here to transfer patient to Hospice house at this time. Pt sent with amberly.
--- NOTE | 2021-07-23 16:09 | NUR ---
IV to [facility] dc'd catheter tip intact. EMS here to transfer patient to Hospice house at this time. Pt sent with amberly.
== END 2021-07-23 14:05 | disposition hospice, home (50) | DRG 54 ==
LOC: COL.ER 11:23 → MEDICAL 15:06
PROVIDERS: Emergency Medicine; Physician Assistant; ADMIT Internal Medicine
PROC: 0W993ZZ Drainage of Right Pleural Cavity, Percutaneous Approach (ICD-10-PCS; principal; 2021-07-21)
DX: C79.31 Secondary malignant neoplasm of brain (principal); G92.8 Other toxic encephalopathy; C64.1 Malignant neoplasm of right kidney, except renal pelvis; C78.01 Secondary malignant neoplasm of right lung; I13.0 Hypertensive heart and chronic kidney disease with heart failure and stage 1 through stage 4 chronic kidney disease, or unspecified chronic kidney disease; I50.22 Chronic systolic (congestive) heart failure; N17.9 Acute kidney failure, unspecified; N18.4 Chronic kidney disease, stage 4 (severe); J91.0 Malignant pleural effusion; J98.11 Atelectasis; E78.5 Hyperlipidemia, unspecified; D50.9 Iron deficiency anemia, unspecified; E11.22 Type 2 diabetes mellitus with diabetic chronic kidney disease; I89.0 Lymphedema, not elsewhere classified; R33.9 Retention of urine, unspecified; T45.1X5A Adverse effect of antineoplastic and immunosuppressive drugs, initial encounter; Z79.82 Long term (current) use of aspirin; Z87.891 Personal history of nicotine dependence; Z51.5 Encounter for palliative care
CPT/HCPCS: 99223-AI; 99233-AI; 99239; A4314; A9585; J0133; J0696; J1100; J1644; J1815; J7030; J8540; Q9967